=== PATIENT | female | born 1970 | race Caucasian/White ===

== ENCOUNTER 2022-01-28 07:24 | Inpatient (IN) ==
[2022-01-28] MEDS ORDERED: Clindamycin 900 MG/50 ML 900 MG/50 ML IV.SOLN IVPB ONE (07:39)
[2022-01-28] MEDS ORDERED: Ringers Solution, Lactated 1,000 ML IVC SCH (07:45)
[2022-01-28] MEDS ORDERED: Ondansetron 4 MG/2 ML VIAL IVP PRN ×2 (08:00→13:49)
[2022-01-28] MEDS ORDERED: Promethazine 6.25 MG in Water for inj. (sterile) 20 ML IVPB PRN (08:00)
[2022-01-28] MEDS ORDERED: *HR* OxyCODONE Immed Rel 5 MG TABLET PO PRN (08:00)
[2022-01-28] MEDS ORDERED: Lidocaine HCL 4 ML Topical Solution (Laryng-O-Jet Kit Sterile Pak) TP ONE (08:11)
[2022-01-28] MEDS ORDERED: *HR* Propofol 200 MG/20 ML VIAL IVP ONE (08:11)
[2022-01-28] MEDS ORDERED: *HR* HYDROMORPHONE 2 MG/ML VIAL ONE (08:11)
[2022-01-28] MEDS ORDERED: Lidocaine -MPF 2% 5 ML VIAL ONE (08:11)
[2022-01-28] MEDS ORDERED: Ondansetron 4 MG/2 ML VIAL ONE (08:11)
[2022-01-28] MEDS ORDERED: *HR* Midazolam HCl 2 MG/2 ML VIAL ONE (08:11)
[2022-01-28] MEDS ORDERED: *HR* FentaNYL (PF) 100 MCG/2 ML VIAL ONE (08:11)
[2022-01-28] MEDS ORDERED: *HR* Rocuronium Bromide 50 MG/5 ML VIAL ONE (08:11)
[2022-01-28] MEDS ORDERED: Ketamine HCL *QUVA* 50mg (1mL) SYRINGE ONE (09:09)
[2022-01-28] MEDS ORDERED: *HR* OxyCODONE/APAP 5/325 TABLET PO ONE (09:15)
[2022-01-28] MEDS ORDERED: EPHEDrine 50 MG/ML VIAL ONE (09:46)
[2022-01-28] MEDS ORDERED: Sugammadex Sodium 200 MG/2 ML VIAL IV ONE (09:56)
[2022-01-28] MEDS ORDERED: Acetaminophen 325 MG TABLET PO PRN ×2 (12:00→13:49)
[2022-01-28] MEDS: *HR* HYDROmorphone PF 0.5 MG/0.5 ML SYRINGE IVP PRN ×2 (12:10→12:19)
[2022-01-28] MEDS ORDERED: Ipratropium/Albuterol Neb 3 ML IH PRN (13:49)
[2022-01-28] MEDS ORDERED: Naloxone 0.4 MG/ML INJ IVP PRN (13:49)
[2022-01-28] MEDS: Clindamycin 900 MG/50 ML 900 MG/50 ML IV.SOLN IVPB SCH (15:42)
[2022-01-28] MEDS: 0.9 % Sodium Chloride 1,000 ML IVC SCH (15:42)
[2022-01-28] MEDS: Gabapentin 300 MG CAPSULE PO SCH ×2 (15:42→21:03)
[2022-01-28] MEDS: *HR* HYDROcodone/Acet 5/325 mg TABLET PO PRN ×2 (15:46→19:47)
[2022-01-28] MEDS: Magnesium Oxide 400 MG TABLET PO SCH (21:03)
[2022-01-28] MEDS: tiZANidine 4 MG TABLET PO SCH (21:03)
[2022-01-28] MEDS: rOPINIRole 0.25 MG TABLET PO SCH (21:03)
[2022-01-29] MEDS: Clindamycin 900 MG/50 ML 900 MG/50 ML IV.SOLN IVPB SCH (01:02)
[2022-01-29 05:39] LABS: Basophils % 0.1 %; Hematocrit 37.6 % (35.3-44.9); Hemoglobin 12.4 g/dL (11.5-15.4); Immature Granulocytes % 0.3 % (0-4); Lymphocytes # 0.6 K/mcL (0.6-4.6); Lymphocytes % 4.1 %; Mean Corpuscular Hemoglobin 30.7 pg (28.0-33.3); Mean Corpuscular Volume 93.1 fL (83.0-100.0); Mean Platelet Volume 11.2 fL (9.4-12.4); Monocytes # 0.5 K/mcL (0.0-1.3); Monocytes % 3.7 %; Neutrophils # 13.2 K/mcL (1.6-8.9); Platelet Count 192 K/mcL (140-400); Red Blood Count 4.04 M/mcL (3.82-4.97); Segmented Neutrophils % 91.8 %; White Blood Count 14.4 K/mcL (4.3-11.1)
[2022-01-29] MEDS: BuPROPion XL (24 HR) 150 MG TABLET PO SCH (06:50)
[2022-01-29] MEDS: Magnesium Oxide 400 MG TABLET PO SCH ×2 (06:50→20:57)
[2022-01-29] MEDS: tiZANidine 4 MG TABLET PO SCH ×2 (06:50→20:57)
[2022-01-29] MEDS: Gabapentin 300 MG CAPSULE PO SCH ×3 (06:50→20:57)
[2022-01-29] MEDS: Cholecalciferol (D-3) 1,000 UNIT (25MCG) TABLET PO SCH (06:50)
[2022-01-29] MEDS: DilTIAZem CD (24hr) 120 MG CAP.ER.24H PO SCH (08:33)
[2022-01-29] MEDS: methylPREDNISolone 125 MG/2 ML VIAL IVP ONE ×2 (08:50→12:59)
[2022-01-29 08:57] LABS: Alanine Aminotransferase 41 Units/L (7-52); Albumin 4.2 g/dL (3.5-5.7); Albumin/Globulin Ratio 1.4 (1.1-2.2); Alkaline Phosphatase 63 Units/L (34-104); Aspartate Amino Transferase 55 Units/L (13-39); BUN/Creatinine Ratio 18 (6-26); Bilirubin,Direct 0.1 mg/dL (0.0-0.2); Bilirubin,Indirect 0.5 mg/dL (0.0-1.0); Bilirubin,Total 0.6 mg/dL (0.3-1.0); Blood Urea Nitrogen 13 mg/dL (6-20); Calcium 9.7 mg/dL (8.6-10.3); Carbon Dioxide 27 mEq/L (23-29); Chloride 101 mEq/L (98-107); Globulin 2.9 g/dL (2.4-3.5); Glucose 136 mg/dL (70-105); Osmolality,Calculated 288 (280-300); Potassium 4.3 mEq/L (3.5-5.1); Sodium 138 mEq/L (136-145); Total Protein 7.1 g/dL (6.4-8.9)
[2022-01-29] MEDS: Fluticasone Propionate Nasal 50 MCG/SPRAY BOTTLE NS SCH (12:30)
[2022-01-29] MEDS ORDERED: methylPREDNISolone 125 MG/2 ML VIAL IVP ONE (12:44)
[2022-01-29] MEDS ORDERED: Ondansetron 4 MG/2 ML VIAL IVP PRN (14:20)
[2022-01-29] MEDS ORDERED: *HR* FentaNYL (PF) 100 MCG/2 ML VIAL IVP PRN (14:20)
[2022-01-29] MEDS ORDERED: *HR* Propofol 200 MG/20 ML VIAL IVP ONE (14:41)
[2022-01-29] MEDS ORDERED: Lidocaine -MPF 2% 5 ML VIAL ONE (14:42)
[2022-01-29] MEDS ORDERED: *HR* Succinylcholine 200 MG/10 ML VIAL IVP ONE (14:42)
[2022-01-29] MEDS ORDERED: *HR* FentaNYL (PF) 100 MCG/2 ML VIAL ONE (14:42)
[2022-01-29] MEDS ORDERED: Ondansetron 4 MG/2 ML VIAL ONE (14:42)
[2022-01-29] MEDS ORDERED: Indomethacin 50 MG SUPP.RECT RC ONE (15:47)
[2022-01-29] MEDS ORDERED: Albuterol 2.5 MG/3 ML NEBULIZER IH ONE (16:27)
[2022-01-29] MEDS ORDERED: Albuterol 2.5 MG/3 ML NEBULIZER ONE (16:30)
[2022-01-29] MEDS: 0.9 % Sodium Chloride 1,000 ML IVC SCH (18:04)
[2022-01-29] MEDS: rOPINIRole 0.25 MG TABLET PO SCH (20:57)
[2022-01-30 06:24] LABS: Basophils % 0.1 %; Hematocrit 33.3 % (35.3-44.9); Immature Granulocytes % 0.6 % (0-4); Lymphocytes # 0.5 K/mcL (0.6-4.6); Lymphocytes % 4.8 %; Mean Corpuscular HGB Conc 31.5 g/dL (31.6-35.5); Mean Corpuscular Hemoglobin 29.6 pg (28.0-33.3); Mean Corpuscular Volume 93.8 fL (83.0-100.0); Mean Platelet Volume 11.7 fL (9.4-12.4); Monocytes # 0.4 K/mcL (0.0-1.3); Monocytes % 3.9 %; Neutrophils # 10.1 K/mcL (1.6-8.9); Platelet Count 172 K/mcL (140-400); Red Blood Count 3.55 M/mcL (3.82-4.97); Red Cell Distribution Width 13.2 % (11.5-14.5); Segmented Neutrophils % 90.6 %; White Blood Count 11.1 K/mcL (4.3-11.1)
[2022-01-30 06:25] LABS: Hemoglobin 10.5 g/dL (11.5-15.4)
[2022-01-30 06:46] LABS: Albumin 3.4 g/dL (3.5-5.7); Albumin/Globulin Ratio 1.4 (1.1-2.2); Bilirubin,Direct 0.1 mg/dL (0.0-0.2); Bilirubin,Indirect 0.3 mg/dL (0.0-1.0); Bilirubin,Total 0.4 mg/dL (0.3-1.0); Globulin 2.4 g/dL (2.4-3.5); Total Protein 5.8 g/dL (6.4-8.9)
[2022-01-30 07:45] VITALS: BP 114/72; PULSE 74; TEMP 98; O2SAT 95
[2022-01-30] MEDS: Cholecalciferol (D-3) 1,000 UNIT (25MCG) TABLET PO SCH (08:25)
[2022-01-30] MEDS: BuPROPion XL (24 HR) 150 MG TABLET PO SCH (08:25)
[2022-01-30] MEDS: DilTIAZem CD (24hr) 120 MG CAP.ER.24H PO SCH (08:25)
[2022-01-30] MEDS: tiZANidine 4 MG TABLET PO SCH (08:25)
[2022-01-30] MEDS: Magnesium Oxide 400 MG TABLET PO SCH (08:25)
[2022-01-30] MEDS: Fluticasone Propionate Nasal 50 MCG/SPRAY BOTTLE NS SCH (08:26)
[2022-01-30] MEDS: Gabapentin 300 MG CAPSULE PO SCH (08:26)
== END 2022-01-30 12:03 | disposition home or self-care (01) | DRG 419 ==
LOC: SAMDAY 07:24 → 3ANU 13:51
PROVIDERS: ADMIT Surgery; ATTEND Surgery